=== PATIENT | male | born 1970 | race Caucasian/White ===

== ENCOUNTER 2020-01-31 13:58 | Emergency (ER) | payer OTHER ==
[~2020-01-31] VITALS: Ht 182.9 cm; Wt 83.0 kg
[2020-01-31 14:16] VITALS: BP 117/76
== END 2020-01-31 15:47 | disposition home or self-care (01) ==
LOC: ER 13:58
DX: S00.83XA Contusion of other part of head, initial encounter (principal); S46.911A Strain of unspecified muscle, fascia and tendon at shoulder and upper arm level, right arm, initial encounter; J32.4 Chronic pansinusitis; V49.9XXA Car occupant (driver) (passenger) injured in unspecified traffic accident, initial encounter; Y93.89 Activity, other specified; Y92.89 Other specified places as the place of occurrence of the external cause; Y99.8 Other external cause status
CPT/HCPCS: 70486; 73030

== ENCOUNTER 2024-01-08 20:19 | Emergency (ER) | payer OTHER | END 2024-01-08 21:11 | disposition left against medical advice (07) | LOC: ER 20:19 | DX: S70.11XA Contusion of right thigh, initial encounter (principal); Z53.21 Procedure and treatment not carried out due to patient leaving prior to being seen by health care provider; X58.XXXA Exposure to other specified factors, initial encounter; Y93.89 Activity, other specified; Y92.89 Other specified places as the place of occurrence of the external cause; Y99.8 Other external cause status ==